=== PATIENT | male | born 1970 | race Caucasian/White ===

== ENCOUNTER 2024-09-24 11:06 | Day surgery (SDC) | payer BC, SELFPAY ==
[2024-09-24] VITALS (9 sets, daily range): BP systolic 123–168; BP diastolic 75–96; PULSE 58–96; RESP 17–18; TEMP 36.2–36.8; O2SAT 95–98; BMI 27.3
--- NOTE | 2024-09-24 11:36 | W.PM.OPSFHP ---
Same Day Surgery H&P Indication for Procedure/HPI DATE OF PROCEDURE: September 24, 2024 CHIEF COMPLAINT/INDICATIONFOR SURGICAL PROCEDURE: symptomatic right inguinal hernia PREOP DIAGNOSIS: symptomatic right inguinal hernia PLANNED PROCEDURE: Operation Date: 09/24/24 12:50 Proposed Procedures p RIGHT Open Inguinal Hernia Repair w/ Mesh [id number] K40.90(Right) - Alexander Marshall MD Medications/Allergies* Home Medications ?Medication ?Instructions ?Recorded ?Confirmed ?Type No Known Home Medications 07/08/24 09/03/24 History Allergies/Adverse Reactions Allergy/AdvReac Type Severity Reaction Status Date / Time No Known Allergies Allergy Verified 09/03/24 14:34 Pertinent History/Comorbid Conditions* Medical History (Updated 07/08/24 @ 08:44 by Alex Murry NP) No pertinent past medical history Surgical History (Updated 07/08/24 @ 08:23 by Alex Murry NP) Hx of shoulder surgery right shoulder Hx of elbow surgery left elbow Family History (Updated 07/08/24 @ 08:25 by Alex Murry NP) Diabetes Von Willebrand disease Brother Bleeding disorder Denies family history of Clotting disorder Anesthesia complication Social History Smoking and tobacco/nicotine status: never used tobacco/nicotine Alcohol intake: current Alcohol type: beer Substance/Drug Use: never Marital status: Legally Number of children: 5 Pertinent Exam Findings alert, oriented x 3, clear to auscultation bilaterally, regular rate & rhythm, operative site marked and procedure specific exam findings abdomen soft, nt, nd Right inguinal hernia soft, reducible Recommendations Risks and benefits of procedure reviewed and Patient/family agree to proceed Surgery/Procedure today Other Plans: Proceed with open right inguinal hernia repair with mesh Coding Level of Care Code Acute Code for Chg Fwd
[2024-09-24] MEDS: ceFAZolin 2,000 mg SDV 2000 MG IVP (12:42)
--- NOTE | 2024-09-24 14:22 | P.OP_ITS ---
Operative Report Date of procedure: September 24, 2024 Pre-op diagnosis: Symptomatic right inguinal hernia Post-op diagnosis: same Post-op findings: Large indirect right inguinal hernia. Hernia sac opened. Hernia sac contained omentum only. Hernia contents reduced back into the abdomen. Procedure done: Open right inguinal hernia repair with mesh Implants: Plug and patch mesh size large Specimens removed/disposition: N/A Pathology: none sent Surgeon: Alexander Marshall MD Electrical Electronics Engineer: N/A Anesthesia: General Estimated blood loss (mL): 10 Complications: N/A Findings: Large indirect right inguinal hernia. Hernia sac opened. Hernia sac contained omentum only. Hernia contents reduced back into the abdomen. Condition: stable Disposition: same day Brief History: 54-year-old male who presented with a symptomatic right inguinal hernia. Discussed risk and benefits and patient agreed to proceed with open right inguinal hernia repair with mesh. Procedure: Patient brought to the OR and placed supine on the table. SCDs were placed and functioning. Preoperative ancef was administered. General anesthesia was induced. A davison catheter was placed without any complications. The right groin was prepped and draped in the usual sterile fashion. Local infiltration at the surgical site was done using lidocaine/bupivacaine with epinephrine. A 5cm incision was carried out over the right inguinal canal. Tissue dissection was carried down to the external oblique fascia using electrocautery. The fascia was incised and the cord structures were identified. Cord structures were dissected of the hernia sac. I identified a large indirect inguinal hernia. The hernia sac was dissected and opened up. It contained omentum only. The omentum was reduced into the abdomen. The plug was placed at the site of the deep inguinal ring and the posterior wall of the inguinal canal was reinforced using a mesh patch. The plug was fixed using 2-0 ethibond to the cojoint ligament and inguinal ligament with interrupted sutures. The mesh patch was sutured to the cojoint tendon and the inguinal ligament using interrupted sutures with 2-0 ethibond. The external oblique fascia was closed using 2-0 Ethibond. Skin was closed using 4-0 monocryl and surgical glue. Davison was removed. The patient woke up from anesthesia and was transferred to PACU without any complications.
[2024-09-24] MEDS: oxyCODONE 5 mg IR Tab/Cap PO (15:15)
== END 2024-09-24 15:34 | disposition home or self-care (01) ==
PROVIDERS: PCP Clinical Nurse Specialist Adult Health; Visit Provider Student in an Organized Health Care Education/Training Program
PROC: (CPT 49505; principal; 2024-09-24 12:50)
DX: K40.90 Unilateral inguinal hernia, without obstruction or gangrene, not specified as recurrent (principal)
CPT/HCPCS: 49505; C1781; J0690; J1100; J1885; J2250; J2405; J2704; J3010; J3490; J7030; J9999